=== PATIENT | male | born 1960 | race Caucasian/White ===

== ENCOUNTER 2019-08-19 11:18 | Outpatient (RCR) | payer OTHER ==
[~2019-08-19 11:18] MED LIST: FLEXERIL 1010 MG/TAB PO; MOTRIN 200200 MG/TAB PO; NORCO 325 MG-51 TAB PO
== END 2019-10-23 | disposition home or self-care (01) ==
LOC: WSOH
DX: S16.1XXA Strain of muscle, fascia and tendon at neck level, initial encounter (principal); Z98.1 Arthrodesis status; Z90.89 Acquired absence of other organs; Y99.0 Civilian activity done for income or pay